=== PATIENT | female | born 1930 | race African-American/Black ===

== ENCOUNTER 2016-12-06 13:03 | Inpatient (IN) | payer BC, MEDICARE ==
[~2016-12-06] VITALS: Ht 162.6 cm; Wt 67.6 kg
[~2016-12-06 13:03] MED LIST: NEBI10TA2 PO; OLME1TAB30 PO
[2016-12-06] MEDS ORDERED: IBUPROFEN 600MG TABLET PO STA (16:29)
[2016-12-06] MEDS ORDERED: SODIUM CHLORIDE 0.9% 250 ML IV ONE (16:42)
[2016-12-06 17:10] LABS: CHLORIDE 106 mEq/L (98-107)
[2016-12-06 17:11] LABS: BASOPHILS % 0.8 % (0.0-2.0); EOSINOPHILS % 2.2 % (0.0-5.0); HEMATOCRIT. 34.6 % (36.0-48.0); HEMOGLOBIN. 11.6 g/dL (12.0-16.0); LYMPHOCYTES % 23.6 % (20.0-50.0); MEAN CORPUSCULAR HEMOGLOBIN 29.4 pg (28.0-32.0); MEAN CORPUSCULAR VOLUME 88.1 fL (81.0-99.0); MEAN PLATELET VOLUME 10.2 fl (7.4-10.4); MONOCYTES % 8.9 % (2.0-8.0); NEUTROPHILS % 64.5 % (40.0-76.0); PLATELET 220 x1000/uL (130-400); RED BLOOD CELL COUNT 3.93 mill/uL (4.2-5.4); RED CELL DISTRIBUTION WIDTH 15.7 % (11.6-14.6)
[2016-12-06 17:18] LABS: CARBON DIOXIDE 30 mEq/L (21-32); TROPONIN I < 0.02 ng/mL (0.00-0.04)
[2016-12-06 17:27] LABS: CLARITY URINE CLOUDY (CLEAR); COLOR URINE YELLOW (YELLOW); GLUCOSE URINE NEGATIVE (NEGATIVE); KETONES URINE NEGATIVE (NEGATIVE); LEUKOCYTE ESTERASE URINE NEGATIVE (NEGATIVE); NITRITE URINE NEGATIVE (NEGATIVE); OCCULT BLOOD URINE NEGATIVE (NEGATIVE); PROTEIN URINE NEGATIVE (NEGATIVE); SPECIFIC GRAVITY URINE 1.014 (1.005-1.030)
[2016-12-06] MEDS ORDERED: ACETAMINOPHEN 325MG TABLET PO PRN ×2 (18:30→18:45)
[2016-12-06] MEDS ORDERED: ONDANSETRON HCL 4MG/2ML VIAL IV PRN (18:45)
[2016-12-06] MEDS ORDERED: GUAIFENESIN 200MG/10ML SUGAR FREE UDC PO PRN (18:45)
[2016-12-06] MEDS ORDERED: IPRATROPIUM/ALBUTEROL 0.5-3(2.5)MG/3ML NEB INH PRN (18:45)
[2016-12-06] MEDS ORDERED: NA PHOS,M-B/NA PHOS,DI-BA ENEMA 118ML PR PRN (18:45)
[2016-12-06] MEDS ORDERED: MAGNESIUM/ALUMINUM HYDROXIDE/SIMETHICONE 30ML UDC PO PRN (18:45)
[2016-12-06] MEDS ORDERED: TRAMADOL 50MG TABLET PO PRN (18:45)
[2016-12-06] MEDS ORDERED: NITROGLYCERIN 0.4MG TABLET SL SL PRN (18:45)
[2016-12-06] MEDS ORDERED: DOCUSATE SODIUM 100MG CAPSULE PO PRN (18:45)
[2016-12-06 19:46] LABS: T4 FREE 1.21 ng/dL (0.76-1.46)
[2016-12-06 20:11] LABS: FOLIC ACID (FOLATE) SERUM 15.8 ng/mL (>5.38)
[2016-12-06] MEDS: CLONIDINE 0.1MG TABLET PO PRN (21:02)
[2016-12-06 22:12] LABS: *AMPHETAMINES SCREEN URINE NEGATIVE (NEGATIVE); *BARBITURATES SCREEN URINE NEGATIVE (NEGATIVE); *BENZODIAZEPINES SCREEN URINE NEGATIVE (NEGATIVE); *COCAINE SCREEN URINE NEGATIVE (NEGATIVE); CANNABINOID URINE SCREEN NEGATIVE (NEGATIVE); METHADONE URINE SCREEN NEGATIVE (NEGATIVE); OPIATES URINE SCREEN NEGATIVE (NEGATIVE); PHENCYCLIDINE URINE SCREEN NEGATIVE (NEGATIVE)
[2016-12-06] MEDS ORDERED: ZOLPIDEM TARTRATE 5MG TABLET PO PRN (23:00)
[2016-12-06 23:12] LABS: CREATINE KINASE 93 IU/L (26-192); CREATINE KINASE MB FRACTION 0.9 ng/mL (0.5-3.6); TROPONIN I < 0.02 ng/mL (0.00-0.04)
[2016-12-07] VITALS (9 sets, daily range): BP systolic 148–195; BP diastolic 78–97
[2016-12-07] MEDS ORDERED: CEFTRIAXONE 1 G PREMIX 50 ML IV SCH (02:00)
[2016-12-07] MEDS ORDERED: LEVOFLOXACIN 500MG PREMIX 100 ML IV NR (03:00)
[2016-12-07] MEDS: CLONIDINE 0.1MG TABLET PO PRN (06:41)
[2016-12-07 08:14] LABS: CREATINE KINASE 100 IU/L (26-192); CREATINE KINASE MB FRACTION 1.3 ng/mL (0.5-3.6); TROPONIN I < 0.02 ng/mL (0.00-0.04)
[2016-12-07] MEDS: ENOXAPARIN 40MG/0.4ML SYR SUBCUT SCH (09:28)
[2016-12-07] MEDS: ASPIRIN 325MG EC TABLET PO SCH (09:29)
[2016-12-07] MEDS: LISINOPRIL 20MG TABLET PO SCH ×2 (09:29→22:21)
[2016-12-07] MEDS: AMLODIPINE 10MG TABLET PO SCH ×2 (09:29→09:48)
[2016-12-07] MEDS: ZINC SULFATE 220 MG ( 50 ) CAPSULE PO SCH (09:29)
[2016-12-07] MEDS: FAMOTIDINE 20MG/2ML VIAL IV SCH (09:30)
[2016-12-07] MEDS ORDERED: DULO30CA2 PO (11:50)
[2016-12-07] MEDS ORDERED: NEBI5TAB3 PO (11:50)
[2016-12-07] MEDS ORDERED: HYDR25TA PO (11:50)
[2016-12-07] MEDS ORDERED: LOSA100T14 PO (11:50)
[2016-12-07] MEDS ORDERED: HALOPERIDOL LACTATE 5MG/ML VIAL IM SCH (13:45)
[2016-12-08] VITALS: BP 139/75
[2016-12-08] MEDS: CEFTRIAXONE 1 G PREMIX 50 ML IV SCH (02:00)
[2016-12-08] MEDS: LEVOFLOXACIN 250MG PREMIX 50 ML IV SCH (03:00)
[2016-12-08 06:00] VITALS: BP 164/80
[2016-12-08 08:00] VITALS: BP 167/81
[2016-12-08] MEDS: FAMOTIDINE 20MG/2ML VIAL IV SCH (08:35)
[2016-12-08] MEDS: ENOXAPARIN 40MG/0.4ML SYR SUBCUT SCH (08:35)
[2016-12-08] MEDS: ASPIRIN 325MG EC TABLET PO SCH (08:36)
[2016-12-08] MEDS: LISINOPRIL 20MG TABLET PO SCH ×2 (08:36→21:00)
[2016-12-08] MEDS: ZINC SULFATE 220 MG ( 50 ) CAPSULE PO SCH (08:36)
[2016-12-08] MEDS: AMLODIPINE 10MG TABLET PO SCH (08:36)
[2016-12-08 12:00] VITALS: BP 134/67
[2016-12-08 16:00] VITALS: BP 155/65
[2016-12-08 20:00] VITALS: BP 116/90
[2016-12-09] VITALS: BP 176/84
[2016-12-09] MEDS: LEVOFLOXACIN 250MG PREMIX 50 ML IV SCH (03:00)
[2016-12-09] MEDS: CEFTRIAXONE 1 G PREMIX 50 ML IV SCH (03:38)
[2016-12-09 04:00] VITALS: BP 178/71
[2016-12-09 09:00] VITALS: BP 164/65
[2016-12-09] MEDS: ENOXAPARIN 40MG/0.4ML SYR SUBCUT SCH ×2 (09:00→10:07)
[2016-12-09] MEDS: ZINC SULFATE 220 MG ( 50 ) CAPSULE PO SCH (10:05)
[2016-12-09] MEDS: LISINOPRIL 20MG TABLET PO SCH ×3 (10:06→20:57)
[2016-12-09] MEDS: ASPIRIN 325MG EC TABLET PO SCH (10:06)
[2016-12-09] MEDS: AMLODIPINE 10MG TABLET PO SCH (10:06)
[2016-12-09] MEDS: FAMOTIDINE 20MG/2ML VIAL IV SCH (10:06)
[2016-12-09 17:39] VITALS: BP 201/107
[2016-12-09 20:51] VITALS: BP 148/79
[2016-12-10] MEDS: CLONIDINE 0.1MG TABLET PO PRN (00:15)
[2016-12-10 00:18] VITALS: BP 179/93
[2016-12-10] MEDS: CEFTRIAXONE 1 G PREMIX 50 ML IV SCH (01:47)
[2016-12-10] MEDS: LEVOFLOXACIN 250MG PREMIX 50 ML IV SCH (02:34)
[2016-12-10 04:00] VITALS: BP 167/85
[2016-12-10] MEDS: ASPIRIN 325MG EC TABLET PO SCH (09:00)
[2016-12-10] MEDS: ENOXAPARIN 40MG/0.4ML SYR SUBCUT SCH (09:00)
[2016-12-10] MEDS: LISINOPRIL 20MG TABLET PO SCH (09:00)
[2016-12-10] MEDS: AMLODIPINE 10MG TABLET PO SCH (09:00)
[2016-12-10] MEDS: ZINC SULFATE 220 MG ( 50 ) CAPSULE PO SCH (09:00)
[2016-12-10] MEDS: FAMOTIDINE 20MG/2ML VIAL IV SCH (09:00)
== END 2016-12-10 16:15 | disposition home or self-care (01) | DRG 689 ==
LOC: ER 13:26 → 6WST 18:24 → EDBEDREQTM 18:28 → EDBEDREQ 18:28 → SUPCPDRO 18:29 → ENRESERV 21:29
PROVIDERS: ADMIT Internal Medicine; ATTEND Internal Medicine
DX: N39.0 Urinary tract infection, site not specified (principal); G93.40 Encephalopathy, unspecified; F03.90 Unspecified dementia, unspecified severity, without behavioral disturbance, psychotic disturbance, mood disturbance, and anxiety; D63.8 Anemia in other chronic diseases classified elsewhere; D64.9 Anemia, unspecified; W01.0XXA Fall on same level from slipping, tripping and stumbling without subsequent striking against object, initial encounter; I10 Essential (primary) hypertension; Y93.89 Activity, other specified; Y92.89 Other specified places as the place of occurrence of the external cause; Y99.8 Other external cause status; Z79.899 Other long term (current) drug therapy
CPT/HCPCS: 36415; 71010; 73030; 73521; 73552; 73560; 73590; 73610; 73630; 80053; 80061; 80305; 81001; 82550; 82553; 82607; 82746; 83036; 83690; 84439; 84443; 84484; 85025; 87077; 87086; 87186; 93005; 93306; 93970; 97162; 97166; 99285; J0696; J1630; J1650; J1956; J3490; J7040; J7050